=== PATIENT | male | born 2000 | race Caucasian/White ===

== ENCOUNTER 2025-10-10 17:35 | Emergency (ER) | payer BC ==
[~2025-10-10] VITALS: Ht 182.8 cm; Wt 104.3 kg
[2025-10-10] MEDS ORDERED: Dicyclomine Hydrochloride 10 MG CAP PO ONE (18:35)
[2025-10-10 18:48] LABS: BASO # 0.0 10*3/uL (0.0-0.1); BASO % 0.2 % (0.0-1.0); EOS # 0.0 10*3/uL (0.0-0.4); EOS % 0.0 % (1.0-4.0); MEAN CELL VOLUME 87.5 fl (80.0-94.0); MEAN CORPUSCULAR HGB 29.9 pg (27.0-31.0); MEAN PLATELET VOLUME 10.0 fl (9.6-12.3); MONO # 0.4 10*3/uL (0.1-1.0); MONO % 5.8 % (3.0-9.0); NEUT # 5.0 10*3/uL (2.3-7.9); NEUT % 77.9 % (47.0-73.0); NUCLEATED RED BLOOD CELL 0.0 % (0.0-0.0); NUCLEATED RED BLOOD CELL 0.0 10*3/uL (0.0-0.0); PLATELET COUNT AUTOMATED 229 10*3/uL (130-400); RED CELL DISTRI WIDTH 11.9 % (0-14.5)
[2025-10-10 19:06] LABS: BUN 9 mg/dl (9-23); SGPT/ALT 39 U/L (5-49)
[2025-10-10 19:29] LABS: BILIRUBIN Negative (Negative); BLOOD Negative (Negative); CLARITY Clear (Clear); COLOR Yellow (Yellow); KETONE 2+ (Negative); LEUKO ESTERASE Negative (Negative); NITRITE Negative (Negative); PH 8.0 (4.5-8.0); SPECIFIC GRAVITY 1.015 (1.001-1.030); UROBILINOGEN 1.0 E.U./dl (0.0-1.0)
[2025-10-10 19:38] LABS: EPITHELIAL CELLS 0-2; RBC 0-2 rbc/hpf (0-2); WBC 0-2 wbc/hpf (0-5)
== END 2025-10-10 20:30 | disposition home or self-care (01) ==
LOC: ED 17:35
PROVIDERS: Internal Medicine
DX: B34.9 Viral infection, unspecified (principal); R19.7 Diarrhea, unspecified